=== PATIENT | male | born 1980 | race Caucasian/White ===

== ENCOUNTER 2018-08-29 19:11 | Emergency (ER) | payer MEDICAID, OTHER ==
[~2018-08-29] VITALS: Ht 170.2 cm; Wt 66.3 kg
[2018-08-29 19:54] LABS: BASOPHILS # (AUTO) 0.1 X10'3 (0-0.2); BASOPHILS % (AUTO) 1.3 % (0-1); EOSINOPHILS # (AUTO) 0.2 X10'3 (0-0.9); EOSINOPHILS % (AUTO) 2.8 % (0-6); HEMATOCRIT 48.6 % (42.0-52.0); HEMOGLOBIN 16.3 g/dl (14.0-17.9); LYMPHOCYTES # (AUTO) 1.1 X10'3 (1.1-4.8); LYMPHOCYTES % (AUTO) 14.4 % (21-51); MEAN CORPUSCULAR HEMOGLOBIN 27.3 PG (27.0-31.0); MEAN CORPUSCULAR HGB CONC 33.5 g/dL (33.0-36.5); MEAN CORPUSCULAR VOLUME 81.4 FL (78-98); MEAN PLATELET VOLUME 9.3 FL (7.4-10.4); MONOCYTES # (AUTO) 0.4 X10'3 (0-0.9); MONOCYTES % (AUTO) 5.7 % (2-12); NEUTROPHILS # (AUTO) 5.8 X10'3 (1.8-7.7); NEUTROPHILS % (AUTO) 75.8 % (42-75); PLATELET COUNT 190 X10'3 (140-440); RED BLOOD COUNT 5.97 X10'6 (4.70-6.10); RED CELL DISTRIBUTION WIDTH 13.5 % (11.5-14.5); WHITE BLOOD COUNT 7.6 X10'3 (4.5-11.0)
[2018-08-29 20:06] LABS: PROTHROMBIN TIME 9.8 SECONDS (9.0-12.0)
[2018-08-29 20:07] LABS: ALANINE AMINOTRANSFERASE 31 U/L (12-78); ALBUMIN 3.5 G/DL (3.4-5.0); ALBUMIN/GLOBULIN RATIO 0.9 (1.1-1.5); ALKALINE PHOSPHATASE 88 IU/L (46-116); ANION GAP 10 (8-16); ASPARTATE AMINO TRANSFERASE 21 U/L (10-37); BILIRUBIN,TOTAL 0.8 MG/DL (0.1-1.0); BLOOD UREA NITROGEN 18 MG/DL (7-18); CALCIUM 9.4 MG/DL (8.5-10.1); CHLORIDE 103 MMOL/L (99-107); CREATININE 1.29 MG/DL (0.60-1.10); GLUCOSE 111 MG/DL (70-104); POTASSIUM 4.5 MMOL/L (3.5-5.1); SODIUM 140 MMOL/L (135-145); TOTAL CARBON DIOXIDE 26.8 MMOL/L (24-32); TOTAL PROTEIN 7.3 G/DL (6.4-8.2); eGFR 62 ML/MIN
[2018-08-29] MEDS ORDERED: HYDROcodone/acetaminophen 5mg/325mg tablet PO ONE (20:45)
[2018-08-29] MEDS ORDERED: ondansetron 4mg rapidly disintigrating tab PO ONE (20:45)
[2018-08-29] MEDS ORDERED: acetaminophen 325mg tablet PO ONE (20:45)
[2018-08-29] MEDS ORDERED: amox tr/potassium clavulanate 875/125mg TAB PO ONE (21:10)
[2018-08-29] MEDS ORDERED: HYDR-3965 PO (21:11)
[2018-08-29] MEDS ORDERED: ONDA8TAB6 PO (21:11)
[2018-08-29] MEDS ORDERED: AMOX-419 PO (21:11)
[2018-08-29 21:32] VITALS: BP 141/83
== END 2018-08-29 21:34 | disposition home or self-care (01) ==
LOC: ER 19:13
DX: K62.5 Hemorrhage of anus and rectum (principal); R10.33 Periumbilical pain
CPT/HCPCS: 36415; 80053; 85025; 85610; 99284